=== PATIENT | male | born 1960 | race Caucasian/White ===

== ENCOUNTER 2025-03-16 10:08 | Outpatient (AMB) | payer MEDICARE, SELFPAY ==
--- NOTE | 2025-03-16 10:22 | A.OFFPC_ITS ---
Vital Signs 03/16/25 10:45 03/16/25 15:35 Height 6 ft 1.43 in Weight 243 lb BMI 31.7 BP 152/90 H 157/88 H Blood Pressure Location Rt brachial Position Sitting Pulse 72 70 Pulse Source Pulse Oximeter Temp 97.4 F Temp Source Temporal Artery Scan Pulse Oximetry (%) 97 Oxygen Delivery Method Room Air Intake Visit Reasons: Establish Care Accompanied by: Self / Same As Patient Allergies No Known Allergies Allergy (Verified 03/16/25 11:08) Medication List - Last Reconciled 03/16/25 by Staci Castellanos PA-C apixaban (Eliquis) 5 mg PO BID atorvastatin 40 mg PO DAILY furosemide 40 mg PO DAILY metoprolol tartrate 75 mg PO BID Tobacco use date assessed: 03/16/25 Fall risk assessment: 1 Fall in past year Last assessed Fall Risk: 03/16/25 Dental Screening Dental Screen Date: 03/16/25 Did you have a dental visit in the last 12 months?: Yes Was dental information given to patient?: Patient has dentist HPI Establish Care HPI Details The patient is a 64-year-old male presenting for a new patient appointment, annual physical exam and preventative care. The patient has a significant past medical history of coronary artery disease, severe mitral regurgitation, heart failure, atrial fibrillation, alcohol abuse, cirrhosis, and cardiomyopathy. He underwent a coronary angiogram as part of the workup for mitral valve surgery, which revealed moderate coronary artery disease. In 2023, he had a mitral valve repair with a 32 mm Cyc 2-ring annuloplasty and Benton-Lefty neocords x2 to the P2-2, along with a CABG x2 and left atrium ablation using the Encompass device. Postoperatively, his course was complicated by a high-degree AV block requiring a permanent pacemaker insertion on postoperative day 2. He was discharged home after nine days, although initially planned for seven days, without visiting nurse services. The patient reports experiencing peripheral edema, which was initially managed with furosemide and gabapentin, though gabapentin was discontinued due to lack of efficacy. He continues on furosemide 40 mg daily, along with other medications including Eliquis, atorvastatin, and metoprolol tartrate. He denies current symptoms of chest pain, dyspnea, or fatigue but notes a recent weight gain. His blood pressure was noted to be elevated at 157/88 mmHg, attributed to missed doses of metoprolol. Preventative care measures discussed include a colon cancer screening with Cologuard, which the patient agreed to pursue. He also expressed willingness to receive a shingles vaccination. Social History - Substance Use: History of alcohol abus e - Exercise: No specific exercise routine mentioned - Functional Status: Reports recent fall while carrying laundry, resulting in back pain [facility] Medical History (Updated 03/16/25 @ 16:38 by Staci Castellanos PA-C) Colon cancer screening Preventative health care Peripheral edema Hypertension Atrial fibrillation Congestive heart failure Severe mitral regurgitation Coronary artery disease Annual physical exam Family History Mother No problems noted. Father Heart attack HTN (hypertension) Social History Housing: House Alcohol intake: current Patient Tobacco Use Status: Former Tobacco user service: No Current occupational status: employed and retired Cognitive needs: No Hearing needs: No Vision needs: No Questionnaire PHQ-9 Over the last 2 weeks, how often have you been bothered by any of the following problems? 1. Little interest or pleasure in doing things: not at all 2. Feeling down, depressed, or hopeless: not at all 3. Trouble falling or staying asleep, or sleeping too much: not at all 4. Feeling tired or having little energy: not at all 5. Poor appetite or overeating: not at all 6. Feeling bad about yourself - or that you are a failure or have let yourself or your family down: not at all 7. Trouble concentrating on things, such as reading the newspaper or watching television: not at all 8. Moving or speaking so slowly that other people could have noticed. Or the opposite - being so fidgety or restless that you have been moving around a lot more than usual: not at all 9. Thoughts that you would be better off or of hurting yourself in some way : not at all Total score: 0 Depression Screening Interpretation: Negative Depression Screening Done: Yes 15763 - PHQ-9 Billing: Yes Source: Developed by Drs. Antonio Jeong, Cynthia Hernandes, Berhane Barraza and colleagues, with an educational ann from [employer]. Thrive Questionnaire Date Thrive assessed: 03/16/25 I am a: Patient What is your living situation today?: I have a steady place to live Within the past 12 months, did the food you bought not last and you didn't have the money to get more?: Never true Within the past 12 months, did you worry whether your food would run out before you got money to buy more?: Never true Do you have trouble paying for medicines?: No Do you have trouble getting transportation to medical appointments?: No Do you have trouble paying your heating and electricity bill?: No Do you have trouble taking care of your child, family member or friend?: No Do you have trouble with day-to-day activities such as bathing, preparing meals, shopping, managing finances, etc.?: No Are you currently unemployed and looking for a job?: No Are you interested in more education?: No THRIVE Score: 0 AUDIT C Alcohol Use Questionnaire (AUDIT-C) 1. How often do you have a drink containing alcohol?: Monthly or less 2. How many drinks containing alcohol do you have on a typical day when you are drinking?: 1 or 2 3. How often do you have six or more drinks on one occasion?: Less than monthly Total Score: 2 Score Reviewed/Action Taken: No BRIDGER-7 AMB Questionnaire BRIDGER-7 Date BRIDGER - 7 assessed: 03/16/25 Feeling nervous, anxious, or on edge: 0 = Not at all Not being able to stop or control worryin = Not at all Worrying too much about different things: 0 = Not at all Trouble relaxin = Not at all Being so restless that it is hard to sit still: 0 = Not at all Becoming easily annoyed or irritable: 0 = Not at all Feeling afraid as if something awful might happen: 0 = Not at all Total BRIDGER-7 score (0-4 normal; 5-9 mild; 10-14 moderate; 15-21 severe): 0 Source: Developed by Drs. Antonio Jeong, Cynthia Hernandes, Berhane Barraza and colleagues, with an educational ann from [employer] BRIDGER-7 Assessment Billing BRIDGER-7 Assessment Tool: BRIDGER-7 Assessment 22743 Review of Systems Const Details: - Cardiovascular: Denies chest pain, dyspnea, or fatigue - Musculoskeletal: Reports back pain following a fall, denies current leg swelling - Gastrointestinal: Denies abdominal pain, reports mild discomfort attributed to a pulled muscle All systems reviewed & are unremarkable except as noted in HPI and below Physical exam (Primary Care) Vital Signs: Last Vital Signs Temp 97.4 F 03/16/25 10:45 Pulse 70 03/16/25 15:35 BP 157/88 H 03/16/25 15:35 Pulse Ox 97 03/16/25 10:45 Oxygen Delivery Method Room Air 03/16/25 10:45 Care Plan Goal for BP management: <140/90 patient will restart his metoprolol 75 mg p.o. b.i.d. and will continue his furosemide 40 mg along with Eliquis 5 mg p.o. b.i.d. and monitor his blood pressure and will discuss at next visit BMI result Body Mass Index 31.7 BMI Assessment/Plan discussion: High BMI High, discussed plan: lifestyle, weight reduction, dietary, physical activity, alcohol moderation and other Tobacco/Smoking Status: Tobacco use Status Tobacco use date assessed 03/16/25 03/16/25 10:24 Patient Tobacco Use Status Former Tobacco user 03/16/25 10:54 PHQ-9: PHQ-9 Score PHQ-9: Total score 0 03/16/25 15:38 Depression Screening Interpretation: Negative Thrive Assessment: Date of Thrive Assessment Date Thrive assessed 03/16/25 03/16/25 10:24 Const Other: Appearance: Alert. Oriented X3. No acute distress. Head: Normal external exam. Normocephalic. Atraumatic. Eyes: Pupils are equal, round, and reactive to light. Extraocular movements intact. Conjunctiva and sclera normal. Eyelids normal. Ears: External auditory canal normal. Tympanic membranes normal. Throat: Pharynx normal. Uvula midline. Moist mucous membranes. Neck: Normal inspection. Neck supple. Full range of motion. No adenopathy. Thyroid Normal. No meningeal signs. No neck mass noted. Cardiovascular: Normal heart rate and rhythm. Heart sound normal. No murmurs noted. Pulses normal throughout. Blood pressure is 157/88. Respiratory: No respiratory distress. Painless inspiration. Breath sounds normal. No wheezes/rales/rhonchi noted. Chest nontender. No accessory muscle usage noted or decreased air movement noted. Abdomen: Soft and nontender. Bowel sounds normal in all 4 quadrants. No distention noted. No organomegaly noted. No visible injury noted. Reports a little bit of pain on the right side, possibly a pulled muscle. Back: No costovertebral angle tenderness. Full range of motion noted. Reports a recent fall with back pain, but it feels a lot better now. Skin: Skin warm and dry. Normal skin color. Normal skin turgor. No rashes/lesions/lacerations noted. Extremities: No lower extremity edema. Extremities exhibit normal range of motion. Extremities nontender. Reports some swelling in feet, but no significant edema noted. Neuro: Oriented X 3. No motor deficit. No sensory deficit. Reflexes normal. No recent falls or loss of consciousness reported. Office Procedures Flu Questionnaire Does the patient have a severe egg allergy?: No Does the patient have severe life threatening allergies?: No Does the patient have a fever or illness today?: No Has the patient ever had Guillain-Littleton Syndrome?: No Has the patient ever had any past reaction to a flu shot?: No Immunizations Fluarix [id number] (PF) 45 mcg (15 mcg x 3)/0.5 mL IM syringe Performing Provider: Staci Castellanos PA-C [facility] [place] [facility] Documented (not given) by: Giana Blanco CMA on 03/16/25 10:54 Reason Not Given: Patient Refused Coding Level of Care Code New Pt Level 4 (82984) New Pt Prev Care 40-64y(72565) Diagnoses Annual physical exam Z00.00 Coronary artery disease I25.10 Severe mitral regurgitation I34.0 Congestive heart failure I50.9 Atrial fibrillation I48.91 Hypertension I10 Peripheral edema R60.0 Preventative health care Z00.00 Colon cancer screening Z12.11 Additional Codes BRIDGER-7 Assessment Billing - BRIDGER-7 Assessment Tool: BRIDGER-7 Assessment 60156 ([id number]) PHQ-9 - 79896 - PHQ-9 Billing: Yes ([id number]) Time Spent (min) 60 Assessment & Plan Assessment & Plan (1) Annual physical exam: Code(s): Z00.00 - Encounter for general adult medical examination without abnormal findings Category: Medical (2) Coronary artery disease: Code(s): I25.10 - Atherosclerotic heart disease of sun'aq coronary artery without angina pectoris Category: Medical Plan: The patient will continue on atorvastatin for cholesterol management and metoprolol for blood pressure control. Follow-up with cardiology is recommended to monitor disease progression and medication efficacy. (3) Severe mitral regurgitation: Code(s): I34.0 - Nonrheumatic mitral (valve) insufficiency Category: Medical Plan: The patient underwent mitral valve repair and continues to be monitored for any residual symptoms or complications. (4) Congestive heart failure: Code(s): I50.9 - Heart failure, unspecified Category: Medical Plan: The patient is on furosemide for fluid management and will be monitored for signs of fluid overload. (5) Atrial fibrillation: Code(s): I48.91 - Unspecified atrial fibrillation Category: Medical Plan: The patient is on Eliquis for anticoagulation to prevent thromboembolic events. (6) Hypertension: Code(s): I10 - Essential (primary) hypertension Category: Medical Plan: The patient is advised to adhere to metoprolol regimen to maintain blood pressure control. Blood pressure will be re-evaluated in a week to ensure control is achieved. (7) Peripheral edema: Code(s): R60.0 - Localized edema Category: Medical Plan: The patient continues on furosemide for management of edema, with monitoring for efficacy and side effects. (8) Preventative health care: Code(s): Z00.00 - Encounter for general adult medical examination without abnormal findings Category: Medical Plan: The patient expressed willingness to receive the shingles vaccine, which is re commended given his age and medical history. (9) Colon cancer screening: Code(s): Z12.11 - Encounter for screening for malignant neoplasm of colon Category: Medical Plan: The patient agreed to undergo Cologuard testing for colon cancer screening. Plan Plan Patient was informed and verbally consented to the use of an ambient scribe for clinic note documentation during this visit. 1. Coronary Artery Disease The patient will continue on atorvastatin for cholesterol management and metoprolol for blood pressure control. Follow-up with cardiology is recommended to monitor disease progression and medication efficacy. 2. Severe Mitral Regurgitation The patient underwent mitral valve repair and continues to be monitored for any residual symptoms or complications. 3. Heart Failure The patient is on furosemide for fluid management and will be monitored for signs of fluid overload. 4. Atrial Fibrillation The patient is on Eliquis for anticoagulation to prevent thromboembolic events. 5. Hypertension The patient is advised to adhere to metoprolol regimen to maintain blood pressure control. Blood pressure will be re-evaluated in a week to ensure control is achieved. 6. Peripheral Edema The patient continues on furosemide for management of edema, with monitoring for efficacy and side effects. 7. Preventative Care: Colon Cancer Screening The patient agreed to undergo Cologuard testing for colon cancer screening. 8. Preventative Care: Shingles Vaccination The patient expressed willingness to receive the shingles vaccine, which is recommended given his age and medical history. During the visit, I discussed the importance of continuing current medications, including atorvastatin, metoprolol, and Eliquis, to manage coronary artery disease, hypertension, and atrial fibrillation. We reviewed the need for regular follow-up with cardiology to monitor his heart conditions and medication effica cy. I recommended a colon cancer screening with Cologuard and a shingles vaccination, both of which the patient agreed to pursue. We also discussed monitoring his blood pressure at home and returning for a follow-up if necessary. Orders: Orders Complete Blood Count Auto Diff Today Z00.00 - Encounter for general adult medical examination without abnormal findings Comprehensive [place]. Panel Fast Today Z00.00 - Encounter for general adult medical examination without abnormal findings Liver Panel Today Z00.00 - Encounter for general adult medical examination without abnormal findings Magnesium Today Z00.00 - Encounter for general adult medical examination without abnormal findings Vitamin B12 and Folate Today Z00.00 - Encounter for general adult medical examination without abnormal findings Vitamin D 25-OH Total Today Z00.00 - Encounter for general adult medical examination without abnormal findings TSH reflex Free T4 Today Z00.00 - Encounter for general adult medical examination without abnormal findings Influenza [id number] Immunization Today Z23 - Encounter for immunization C Reactive Protein Today Z00.00 - Encounter for general adult medical examination without abnormal findings Hemoglobin A1c Today Z00.00 - Encounter for general adult medical examination without abnormal findings Lipid Panel Today Z00.00 - Encounter for general adult medical examination without abnormal findings UA CC w/rflx Micro + Cult Today Z00.00 - Encounter for general adult medical examination without abnormal findings PSA,Total (Free>4and<10) Today Z00.00 - Encounter for general adult medical examination without abnormal findings Referrals Cologuard Test Z12.11 - Encounter for screening for malignant neoplasm of colon, Z12.12 - Encounter for screening for malignant neoplasm of rectum Patient Instructions: - Continue taking atorvastatin, metoprolol, and Eliquis as prescribed. - Monitor blood pressure at home and report any significant changes. - Complete Cologuard test for colon cancer screening. - Schedule and receive shingles vaccination. - Follow up with cardiology as scheduled.
[2025-03-16 10:45] VITALS: BP 152/90; PULSE 72; TEMP 36.3; O2SAT 97; BMI 31.7
--- OUTSIDE RECORDS SUMMARY | 2025-03-16 11:12 | XMS_ITS | Clinical Summary ---
Author Organization [facility] Address [address] [place] [address] Care Team Providers Care Nursing Executive Name Role Phone Luda Mobley ALFREDO Primary Care Provider [phone] Source Comments PLEASE NOTE, if this patient is a minor, it may be UNLAWFUL to discuss sensitive information that is contained in these records (such as FAMILY PLANNING, MENTAL HEALTH or SUBSTANCE ABUSE) with the minor patient's parent or other person without the patient's specific authorization.[facility] Allergies No known active allergies Medications aspirin [address] tablet Take 81 mg by mouth once daily 10/25/2023 Active metoprolol succinate XL (TOPROL-XL) 25 mg 24 hr tablet Take 25 mg by mouth 2 (two) times daily Active atorvastatin (LIPITOR) 40 mg tablet Take 40 mg by mouth nightly at bedtime Active LASIX 80 mg tablet Take 80 mg by mouth once daily 09/12/2022 Active ELIQUIS 5 mg tab Take 5 mg by mouth 2 (two) times daily Active gabapentin (NEURONTIN) 100 mg capsule Take 100 mg by mouth 3 (three) times daily 11/13/2023 Active Active Problems Problem Noted Date Diagnosed Date Class 2 obesity 11/19/2023 Prolonged Q-T interval on ECG 11/19/2023 Pacemaker 11/19/2023 S/P ablation of atrial fibrillation 11/01/2023 Other heart failure 01/11/2023 Overview (11/19/2023): 11/19/23: follow with [facility] 12/19/22: [facility] seen by cardio 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 Admitted to [facility] September 04, 2022 with heart failure. Echo: MARIO on November 29, 2022: The left atrium is severely dilated. There is no thrombus in the left atrial appendage. Aortic Valve The aortic valve is trileaflet. There is no aortic stenosis. There is no aortic regurgitation. Mitral Valve There is severe prolapse with partial flail of the middle (P2) scallop of the posterior leaflet the mitral valve. There is a torn chordae noted as well. The mitral valve mean gradient is 3 mmHg. The tricuspid valve is grossly normal. There is mild tricuspid valve regurgitation. Pulmonary Artery: There is severe pulmonary hypertension. The pulmonary artery systolic pressure estimation is 58 mmHg. EF 55%. Coronary angiogram: mid LAD 50%, D1 60%, PDA 50%, Lcx 30% Assessment/Plan symptomatic severe MR afib alcoholism ? cirrhosis heart failure CAD, mild/mod pulmonary HTN I reviewed Mr. Hdz's cardiac catheterization, transthoracic and transesophageal echocardiograms. He has mild coronary artery disease. He does have a prolapsed mitral valve with severe anteriorly directed jet of mitral regurgitation. He has a large left atrium. His ventricular function is mostly normal. I think Mr. Hdz will do well from a mitral valve repair, possible replacement and a MAZE/pulmonary vein isolation/JOSH clip for his paroxysmal atrial fibrillation. If the valve could not be repaired, we discussed options of mechanical vs. biologic valves, including the risk of Coumadin therapy vs. the risk of needing a second valve procedure during the patients lifetime. The patient understands that a mechanical valve requires lifelong Coumadin therapy and the concomitant need for accurate laboratory testing and interaction with diet and other drugs. Patient understands that Coumadin is not needed for a biologic valve, but that a second valve procedure may be needed in the future. We discussed various valve options and he is thinking about it. The operation will be done through a midline sternotomy approach with the use of cardiopulmonary bypass. The operative mortality and morbidity should be well under 1-2% each. The STS risk algorithm was used. We will arrange for the required preadmission testing leading up to surgery, and he will arrange for a dental consultation. PLAN: GI consult for cirrhosis dental clearance (he does not see a dentist) Chest CT and abdomen He is going home to think about it. He was leaning towards mitral clip but understands that while this may improve his symptoms in the short term, may not be the best half-way solution. To better understand his risks, I think a GI consult for his cirrhosis is prudent to help guide our decision. Resolved Problems Problem Noted Date Diagnosed Date Resolved Date S/P mitral valve repair 11/08/2023 06/0 09/2023 Overview (11/08/2023): 2023 S/P CABG x 2 11/01/2023 11/19/2023 Social History Tobacco Use Types Packs/Day Years Used Date Smoking Tobacco: Never Smokeless Tobacco: Never Tobacco Cessation:Counseling Given: Not Answered Alcohol Use Standard Drinks/Week Comments Yes 0 (1 standard drink = 0.6 oz pur e alcohol) social Social Connections Answer Date Recorded Connectedness 1 11/19/2023 Financial Resource Strain Answer Date R ecorded Financial Resource Strain 1 2023 Stress Answer Date Recorded Stress 1 11/19/2023 Physical Activity Answer Date Recorded Physical Activity 0 12/21/2022 Food Insecurity Answer Date Recorded Food 1 11/19/2023 Transportation Needs Answer Date Record ed Transportation 1 11/19/2023 Housing Stability Answer Date Recorded Housing 1 11/19/2023 Safety and Environment Answer Date Dennys rded Safety 1 11/19/2023 Utilities Answer Date Recorded Utilities 1 11/19/2023 Employment Answer Date Recorded Employment 0 12/21/2022 Sex and Gender Information Value Date Recorded Sex Assigned at Male 11/19/2023 6:36 AM PDT Legal Sex Male 7:33 AM PDT Gender Identity Male 11/19/2023 6:36 AM PDT Sexual Orientation Straight 11/19/2023 6: 36 AM PDT Last Filed Vital Signs Vital Sign Reading Time Taken Comments Blood Pressure 142/70 11/19/2023 9:34 AM EDT Pulse 89 11/19/2023 9:34 AM EDT Temperature 36.5 C (97.7 F) 11/19/2023 9:34 AM EDT Respiratory Rate 20 11/19/2023 9:34 AM EDT Oxygen Saturation 95% 11/19/2023 9:34 AM EDT Inhaled Oxygen Concentration - - Weight 94.8 kg (209 lb) 11/19/2023 9:34 AM EDT Height 188 cm (6' 2 ) 11/19/2023 9:34 AM EDT Body Mass Index 26.83 11/19/2023 9:34 AM EDT Plan of Treatment Health Maintenance Due Date Last Done Comments Diabetes Screening 1960 Hepatitis C Screening 1960 Lipid Screening 1960 HIV Screening 10/14/1975 Imm-DTaP/Tdap/Td (1 - Tdap) 10/14/1979 CT Colonography 2005 Colonoscopy 2005 Colorectal Cancer Screening 2005 FIT/gFOBT 2005 Fecal DNA 2005 Flexible Sigmoidoscopy 2005 Imm-Pneumococcal 50+ (1 of 1 - PCV) 2010 Imm-Zoster, Recombinant (1 of 2) 2010 Alcohol and Drug Screen 06/17/2024 11/19/2023 Depression Annual Screen 06/17/2024 11/19/2023 Anxiety Screening 11/18/2024 11/19/2023 Hypertension Screening (#1) 11/18/2024 Tobacco Screening 11/18/2024 11/19/2023, 11/19/2023 Ahp-EVAXF-23 (2 - season) 2025 021 Imm-Influenza (#1) [address] [facility] ACO Care Teams Nursing Executive Relationship Specialty Start Date End Date Luda Mobley NP [address] [place] [address] PCP - General Internal Medicine 11/19/23
[2025-03-16 15:35] VITALS: BP 157/88; PULSE 70
== END 2025-03-16 11:27 | disposition home or self-care (01) ==
LOC: HO.HMCSH 10:08
PROVIDERS: PCP Internal Medicine; Visit Provider Physician Assistant Medical
DX: Z00.00 Encounter for general adult medical examination without abnormal findings (principal); I25.10 Atherosclerotic heart disease of native coronary artery without angina pectoris; I34.0 Nonrheumatic mitral (valve) insufficiency; I50.9 Heart failure, unspecified; I48.91 Unspecified atrial fibrillation; I10 Essential (primary) hypertension; R60.0 Localized edema; Z12.11 Encounter for screening for malignant neoplasm of colon

== ENCOUNTER → 2025-03-16 10:08 | Outpatient (BNVA) | payer MEDICARE, SELFPAY | PROVIDERS: PCP Internal Medicine; Visit Provider Physician Assistant Medical | DX: Z00.00 Encounter for general adult medical examination without abnormal findings (principal); R60.0 Localized edema; I25.10 Atherosclerotic heart disease of native coronary artery without angina pectoris; I34.0 Nonrheumatic mitral (valve) insufficiency; I11.0 Hypertensive heart disease with heart failure; I50.9 Heart failure, unspecified; I48.91 Unspecified atrial fibrillation; Z23 Encounter for immunization; Z95.0 Presence of cardiac pacemaker | CPT/HCPCS: 96127; 99386 ==